=== PATIENT | female | born 1955 | race Caucasian/White ===

== ENCOUNTER 2016-10-18 01:45 | Observation (INO) | payer BC ==
[2016-10-18] MEDS ORDERED: ASPIRIN 81 MG TABLET, CHEWABLE PO ONE ×2 (01:54→02:48)
[2016-10-18] MEDS ORDERED: KETOROLAC TROMETHAMINE INJ/PF 30 MG/1 ML SDV IV ONE (03:18)
[2016-10-18] MEDS ORDERED: ONDANSETRON HCL INJ/PF 4 MG/2 ML SDV IV ONE (03:18)
--- NOTE | 2016-10-18 03:21 | ER Document Report ---
ED General - General Chief Complaint: Epigastric Pain Stated Complaint: epigastric pain Time Seen by Provider: 10/18/16 03:12 Notes: Patient is a 61-year-old female comes emergency department for chief complaint of pain in her upper abdomen with radiation towards the side of her abdomen. She states pain is sharp and constant. She states that she also has nausea. Symptoms started about 30 minutes prior to arrival tonight. Last meal was dinner, hamburger stroganoff, 6 PM. Vomiting, she denies pain up in her chest, she denies shortness of breath, she denies fever. Past medical history of arthritis and GERD, takes Mobic and Protonix, has had a negative stress test in the past, denies family history or personal history of cardiac disease, denies smoking or alcohol use. She denies any abdominal surgeries. TRAVEL OUTSIDE OF THE [place] IN LAST 30 DAYS: No - Related Data Allergies/Adverse Reactions: hydroxyzine [From Vistaril] Adverse Reaction (Verified 10/18/16 01:55) meperidine [From Demerol] Adverse Reaction (Verified 10/18/16 01:55) Past Medical History - General Information source: Patient - Social History Smoking Status: Never Smoker Frequency of alcohol use: None Drug Abuse: None Lives with: Family Family History: Reviewed & Not Pertinent Patient has suicidal ideation: No Patient has homicidal ideation: No Renal/ Medical History: Denies: Hx Peritoneal Dialysis GI Medical History: Reports: Hx Gastroesophageal Reflux Disease Musculoskeltal Medical History: Reports Hx Arthritis Past Surgical History: Reports: Hx Tubal Ligation - Immunizations Immunizations up to date: Yes Hx Diphtheria, Pertussis, Tetanus Vaccination: Yes Review of Systems - Review of Systems Constitutional: No symptoms reported EENT: No symptoms reported Cardiovascular: No symptoms reported Respiratory: No symptoms reported Gastrointestinal: See HPI Genitourinary: No symptoms reported Female Genitourinary: No symptoms reported Musculoskeletal: No symptoms reported Skin: No symptoms reported Hematologic/Lymphatic: No symptoms reported Neurological/Psychological: No symptoms reported Physical Exam - Vital signs Vitals: Temp Pulse Resp BP Pulse Ox 97.5 F 61 16 157/80 H 98 10/18/16 01:51 10/18/16 01:51 10/18/16 01:51 10/18/16 01:51 10/18/16 01:51 Interpretation: Normal - General General appearance: Alert, Anxious In distress: Mild - patient appears to be in pain - HEENT Head: Normocephalic, Atraumatic Eyes: Normal Conjunctiva: Normal Extraocular movements intact: Yes Eyelashes: Normal Pupils: PERRL Sinus: Normal Nasal: Normal Mouth/Lips: Normal Mucous membranes: Normal Pharynx: Normal Neck: Normal - Respiratory Respiratory status: No respiratory distress Chest status: Nontender Breath sounds: Normal Chest palpation: Normal - Cardiovascular Rhythm: Regular Heart sounds: Normal auscultation Murmur: No - Abdominal Inspection: Normal Distension: No distension Bowel sounds: Normal Tenderness: Tender - very tender with guarding in RUQ and epigastric areas, otherwise benign abdomen, Chi's sign, Guarding Organomegaly: No organomegaly - Back Back: Normal, Nontender - Extremities General upper extremity: Normal inspection, Nontender, Normal color, Normal ROM , Normal temperature General lower extremity: Normal inspection, Nontender, Normal color, Normal ROM , Normal temperature, Normal weight bearing. 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 Cardiac enzymes negative. CBC, chemistry, lipase unremarkable. Examination is suggestive of gallbladder disease along with patient's presenting symptoms. Ultrasound shows cholelithiasis with minimal pericholecystic fluid. Patient is improved but not completely pain-free on reexamination, however she declined any additional pain medicine. Discussed workup, she states she would like to speak with general surgery. Keeping NPO. Patient discussed with Dr. Parsons per [facility] guidelines. 10/18/16 06:[address] Dempsey, surgery masonry contractor, he states he will see the patient. - Vital Signs Vital signs: Temp Pulse Resp BP Pulse Ox 97.5 F 61 16 146/79 H 100 10/18/16 01:51 10/18/16 01:51 10/18/16 04:00 10/18/16 04:02 10/18/16 04:00 - Laboratory Result Diagrams: 10/18/16 03:51 10/18/16 03:51 Laboratory results interpreted by me: 10/18/16 10/18/16 03:51 03:51 RDW 14.5 H BUN 21 H Est GFR (Non-Af Amer) 53 L Glucose 138 H Direct Bilirubin 0.5 H Discharge - Discharge Clinical Impression: Epigastric pain Cholelithiasis Qualifiers: Cholelithiasis location: gallbladder Cholecystitis presence: without cholecystitis Biliary obstruction: without biliary obstruction Qualified Code(s) : K80.20 - Calculus of gallbladder without cholecystitis without obstruction Condition: Stable Disposition: ADMITTED INPATIENT Admitting Provider: Surgicalist Unit Admitted: Surgical Floor
[2016-10-18 04:04] LABS: ABSOLUTE EOSINOPHILS # (AUTO) 0.1 10^3/uL (0.0-0.6); ABSOLUTE LYMPHOCYTES (AUTO) 1.5 10^3/uL (0.5-4.7); ABSOLUTE MONOCYTES (AUTO) 0.6 10^3/uL (0.1-1.4); BASOPHILS % (AUTO) 0.5 % (0-2); EOSINOPHILS % (AUTO) 0.9 % (0-6); HEMATOCRIT 37.7 % (36.0-47.0); HEMOGLOBIN 12.2 g/dL (12.0-15.5); HGB HCT DIFFERENCE -1.1; LYMPHOCYTES % (AUTO) 18.3 % (13-45); MEAN CORPUSCULAR HEMOGLOBIN 27.4 pg (27.0-33.4); MEAN CORPUSCULAR HGB CONC 32.4 g/dL (32.0-36.0); MEAN CORPUSCULAR VOLUME 85 fl (80-97); MONOCYTES % (AUTO) 7.3 % (3-13); RED BLOOD COUNT 4.46 10^6/uL (3.72-5.28); RED CELL DISTRIBUTION WIDTH 14.5 % (11.5-14.0); WHITE BLOOD COUNT 8.2 10^3/uL (4.0-10.5)
[2016-10-18 04:18] LABS: ALANINE AMINOTRANSFERASE 36 U/L (9-52); ALBUMIN 4.3 g/dL (3.5-5.0); ALKALINE PHOSPHATASE 51 U/L (38-126); ANION GAP 10 (5-19); ASPARTATE AMINO TRANSFERASE 28 U/L (14-36); BILIRUBIN,DIRECT 0.5 mg/dL (0.0-0.4); BILIRUBIN,TOTAL 0.5 mg/dL (0.2-1.3); BLOOD UREA NITROGEN 21 mg/dL (7-20); CALCIUM 9.7 mg/dL (8.4-10.2); CARBON DIOXIDE 25 mmol/L (22-30); CHLORIDE 106 mmol/L (98-107); CREATINE KINASE 116 U/L (30-135); CREATININE RESULT 1.05 mg/dL (0.52-1.25); GLUCOSE 138 mg/dL (75-110); LIPASE 127.4 U/L (23-300); POTASSIUM 4.4 mmol/L (3.6-5.0); SODIUM 141.4 mmol/L (137-145)
[2016-10-18 04:28] LABS: CREATINE KINASE MB 1.72 ng/mL (<4.55); TROPONIN I < 0.012 ng/mL
[2016-10-18] MEDS ORDERED: NORMAL SALINE 1000 ML 1,000 ML IV ONE (05:26)
[2016-10-18] MEDS ORDERED: AMPICILLIN SOD/SULBACTAM 3 GM VIAL IV ONE (05:27)
[2016-10-18] MEDS ORDERED: BUPIVACAINE HCL 0.25 % INJ/PF (2.5 MG/1 ML) 30 ML VIAL ONE (07:28)
[2016-10-18] MEDS ORDERED: FENTANYL CITRATE INJ/PF 250 MCG/5 ML AMPULE ONE (07:57)
[2016-10-18] MEDS ORDERED: MORPHINE SULFATE 10 MG/ML INJ ONE (07:58)
[2016-10-18] MEDS ORDERED: MIDAZOLAM 2 MG/2 ML INJ ONE (07:58)
[2016-10-18] MEDS ORDERED: PROPOFOL INJ 200 MG/20 ML VIAL IV ONE (07:58)
[2016-10-18] MEDS ORDERED: ACETAMINOPHEN 100 ML IV ONE (07:58)
[2016-10-18] MEDS ORDERED: CEFAZOLIN INJ 1 GM VIAL ONE (08:31)
[2016-10-18] MEDS ORDERED: DEXTROSE 5%-LACTATED RINGERS 1,000 ML IV PRN (10:34)
[2016-10-18] MEDS ORDERED: OXYCODONE-ACETAMINOPHEN 5-325 MG TABLET PO PRN (10:34)
[2016-10-18] MEDS ORDERED: MORPHINE SULFATE 10 MG/ML INJ IV PRN (10:34)
[2016-10-18] MEDS ORDERED: ONDANSETRON HCL INJ/PF 4 MG/2 ML SDV IV PRN (10:34)
--- NOTE | 2016-10-18 10:34 | Operative Report ---
Operative Report DATE OF SURGERY: 10/18/16 PREOPERATIVE DIAGNOSIS: Acute cholecystitis. Gallstones. POSTOPERATIVE DIAGNOSIS: Same OPERATION: Laparoscopic cholecystectomy SURGEON: DAYTON NORWOOD ANESTHESIA: GA TISSUE REMOVED OR ALTERED: Gallbladder COMPLICATIONS: None ESTIMATED BLOOD LOSS: Minimal INTRAOPERATIVE FINDINGS: Edematous distended gallbladder, small gallstones. Omental adhesions in the lower abdomen PROCEDURE: Informed consent was obtained. Patient was brought to the operating room placed operating table in supine position. After satisfactory induction of general anesthesia, patient's abdomen was prepped and draped in usual sterile fashion. A supraumbilical midline incision was made and dissection carried down thru the fascia the peritoneal cavity entered without difficulty. [place] trocar was inserted. Pneumoperitoneum produced good patient toleration. 5 mm trocar was placed in the subxiphoid location.Two 5 mm trochars were placed in the right subcostal location. Lower abdominal infraumbilical omental adhesions were noted. Liver appeared normal. the gallbladder appeared distended and its wall edematous. There were omental adhesions to the liver and the gallbladder which had to be taken down. Bleeding points on the omentum was controlled with clips and cautery, taking great care to avoid injury to the underlying colon. The gallbladder was grasped and retracted cephalad over the dome of the liver. The infundibulum of the gallbladder was grasped retracted laterally and inferiorly thus exposing calot's triangle. The cystic duct gallbladder junction was clearly identified and the cystic duct was clipped and divided. Cystic artery was likewise taken. The gallbladder was taken off the gallbladder bed using the hook electrocautery technique. There was small amount of bile spillage but no stone spillage during the case. The operative field was irrigated and irrigant aspirated out. The gallbladder was removed with an Endobag through the [place] trocar site fascial defect. Hemostasis appeared excellent. All trochars were removed under the direct vision a laparoscope to ensure hemostasis. The [place]ia trocar site fascial defect was closed with interrupted Vicryl sutures. All skin incisions were closed with subcuticular interrupted Monocryl sutures. Marcaine was injected at the port sites. Patient tolerated procedure well no apparent complications and was taken to the recovery area in stable condition.
[2016-10-18] MEDS ORDERED: ROCURONIUM BROMIDE INJ 50 MG/5 ML VIAL IV ONE (12:08)
[2016-10-18] MEDS ORDERED: LIDOCAINE 2% INJ-PF (20 MG/ML) 10 ML AMPUL ONE (12:08)
[2016-10-18] MEDS ORDERED: NEOSTIGMINE METHYLSULFATE 10 MG/10 ML VIAL ONE (12:08)
[2016-10-18] MEDS ORDERED: SUCCINYLCHOLINE CHLORIDE INJ 200 MG/10 ML VIAL ONE (12:08)
[2016-10-18] MEDS ORDERED: ONDANSETRON HCL INJ/PF 4 MG/2 ML SDV ONE (12:08)
[2016-10-18] MEDS ORDERED: GLYCOPYRROLATE INJ 0.4 MG/2 ML VIAL ONE (12:08)
[2016-10-18] MEDS ORDERED: DEXAMETHASONE SOD PHOSPHATE INJ 4 MG/1 ML VIAL ONE (12:08)
[2016-10-18] MEDS ORDERED: NORMAL SALINE 1000 ML 1,000 ML IV PRN (12:39)
[2016-10-19 14:11] VITALS: BP 113/71
--- NOTE | 2016-10-19 17:45 | EKG REPORT ---
SEVERITY:- NORMAL ECG - SINUS RHYTHM : Confirmed by: Svetlana Day MD 19-Oct-2016 17:45:24
--- NOTE | 2016-10-20 20:50 | DISCHARGE SUMMARY E ---
Discharge Summary NAME: ERIKA DUPONT : 1955 AGE: 61Y ADMITTED: 10/18/2016 DISCHARGED: 10/19/2016 FINAL DIAGNOSIS: Acute cholecystitis, gallstones. PROCEDURE: Laparoscopic cholecystectomy done by Dr. Dempsey on 10/18/2016. SUMMARY: On the day of discharge, patient able to tolerate soft diet. Her pains are more tolerable taking narcotic. However, prescription for Percocet was given in case she needs any strong medications though she claims she still has about 6 Percocet at home that she was taking for kidney stones. A another prescription for Zofran was given for nausea. All of her incisions are clean and dry. She will be discharged today and instructed her not to lift more than 10 pounds for the next week and gradually to increase it to as tolerated in the next 2-3 weeks. She can eat regular food. She has an appointment with Dr. Dempsey on Friday, October 24. DICTATING PHYSICIAN: MATTHEW ANTOINE M.D. [id number] PHY#: [id number] ID: [id number] JOB#: [id number] ACCT: [id number] cc:MATTHEW ANTOINE M.D., CHRISTOPHER M.D. >
--- NOTE | 2016-11-08 21:23 | HISTORY AND PHYSICAL E ---
History and Physical NAME: ERIKA DUPONT : 1955 AGE: 61Y ADMITTED: 10/18/2016 ROOM: 415 CHIEF COMPLAINT: Epigastric pains. HISTORY OF PRESENT ILLNESS: This is a 61-year-old female complaining of upper abdominal pains radiating to the right side of her abdomen. She states that the pain is sharp and constant and associated with nausea. This started about 30 minutes prior to arrival. She had a dinner of hamburger [employer] at 6 p.m. She had some vomiting. She denies any fever or shortness of breath. PAST HISTORY: 1. Arthritis. 2. GERD. 3. Has negative stress test in the past. MEDICATIONS: 1. Mobic. 2. Protonix. FAMILY HISTORY: Negative for cardiac disease. SOCIAL HISTORY: Denies smoking, alcohol use or drug use. PAST SURGICAL HISTORY: Denies any abdominal operations. ALLERGIES: 1. VISTARIL. 2. DEMEROL. REVIEW OF SYSTEMS: As in HPI. No constitutional symptoms. HEENT: No headache, no sore throat or neck pains. Cardiac: No symptoms noted. Respiratory: No shortness of breath. GI: As in HPI. : No dysuria. Musculoskeletal: No symptoms reported. Skin: No symptoms reported. Hematologic/lymphatic: No symptoms reported. Neurological/psychological: No symptoms reported. PHYSICAL EXAMINATION: VITAL SIGNS: Temperature 97.5 degrees Fahrenheit, pulse of 61 per minute, respirations 61 per minute and blood pressure 157/80 and pulse oximetry of 98 on room air. GENERAL APPEARANCE: The patient is alert and anxious. Appears to be in mild pain. HEENT: Normocephalic, atraumatic. Eyes normal. Pupils equal and reactive to light Mucous membranes normal. Pharynx normal. Neck normal. LUNGS: Show normal breath sounds. CARDIAC: Regular sinus rhythm. ABDOMEN: Soft with tenderness and guarding in the right upper quadrant epigastric areas. EXTREMITIES: No edema. IMPRESSION: Acute calculous cholecystitis. PLAN: The patient has had an ultrasound of the gallbladder which showed gallstones and pericholecystic fluid. The plan is for laparoscopic cholecystectomy. DICTATING PHYSICIAN: AMTTHEW ANTOINE M.D. [id number] [facility]#: [id number] ID: [id number] JOB#: [id number] ACCT: [id number] cc:MATTHEW ANTOINE M.D. >
== END 2016-10-19 14:20 | disposition home or self-care (01) ==
LOC: ER 01:45 → EH 06:48 → INTOOBSV 06:48 → 4N 11:40
PROVIDERS: ADMIT Surgery; ATTEND Surgery
PROC: 0FT44ZZ Resection of Gallbladder, Percutaneous Endoscopic Approach (ICD-10-PCS; principal; 2016-10-18 07:30)
DX: K80.12 Calculus of gallbladder with acute and chronic cholecystitis without obstruction (principal); K66.0 Peritoneal adhesions (postprocedural) (postinfection); K21.9 Gastro-esophageal reflux disease without esophagitis; M19.90 Unspecified osteoarthritis, unspecified site; Z79.899 Other long term (current) drug therapy; Z79.1 Long term (current) use of non-steroidal anti-inflammatories (NSAID)
CPT/HCPCS: 93005; 99285; 96375; 96365; 36415; 82553; 82550; 83690; 85025; 80053; 84484; 88304 ×2; 71010; 76705; 93010; 47562; J2250; J0690; J3490 ×2; J1100; J3010; J0295; J1885; J2270; J0330; J2405 ×2; J7030; J2704; J0131; 790